=== PATIENT | male | born 1960 | race Hispanic/Latino ===

== ENCOUNTER 2017-07-19 06:57 | Outpatient (CLI) | payer OTHER | END 2017-07-19 06:58 | disposition home or self-care (01) | LOC: BICULT 06:57 | PROVIDERS: ATTEND Urology | DX: N28.1 Cyst of kidney, acquired (principal) | CPT/HCPCS: 76770 ==

== ENCOUNTER 2020-01-23 09:23 | Outpatient (CLI) | payer OTHER ==
--- NOTE | 2020-01-23 12:52 | CT ---
CT ABDOMEN AND PELVIS WITH IV CONTRAST: Oral contrast was administered. INDICATION: Right lower abdominal pain and right flank pain. Patient has colostomy in place and history of colon cancer. Comparison made to CT abdomen and pelvis with contrast performed 03/22/2013. FINDINGS: Lung bases clear. Liver, spleen, and pancreas are unremarkable. Stomach and duodenum unremarkable. Adrenal glands normal. Review of kidneys again shows a low density lesion involving the anterior left renal cortex. This les ion has been described previously and is a mildly complex cystic lesion. It is stable from exam measu ring 1.8-2.0 cm today. Kidneys otherwise unremarkable. Small bowel loops appear normal. There is a colostomy in the left lower quadrant which appears unrema rkable. The visualized colon is filled with stool and gas. Aorta is normal caliber. No evidence of ad enopathy. A few scattered periaortic lymph nodes are stable. Images through the pelvis again show soft tissue prominent in the presacral region. This was present on the prior exam of 2012 and does not appear significantly changed. The urinary bladder is unremarka ble. There are degenerative changes in the spine. Prominent degenerative change at L4-5 and L5-S1 wit h posterior disc bulge and spurring produces central canal stenosis. There is evidence of prior rectal resection. No evidence of rectal stump identified. IMPRESSION: 1. Soft tissue prominence in the presacral region appears stable from prior exam. There is evidence of prior rectosigmoid resection. No definite Nunez pouch identified. 2. Low density lesion in anterior left renal cortex is stable. 3. No acute process or significant interval change apparent. Degenerative spine changes as described . POS: [id number]
== END 2020-01-23 09:24 | disposition home or self-care (01) ==
LOC: SCSCT 09:23
PROVIDERS: ATTEND Specialist
DX: M25.551 Pain in right hip (principal); M47.816 Spondylosis without myelopathy or radiculopathy, lumbar region; M47.817 Spondylosis without myelopathy or radiculopathy, lumbosacral region
CPT/HCPCS: 74177

== ENCOUNTER 2021-03-02 13:44 | Inpatient (IN) | payer BC ==
[~2021-03-02 13:44] MED LIST: Iopamidol 370 76% 100 ML VIAL ONE
[2021-03-02 15:39] LABS: #Eosinphils 0.1 thou/uL (0.0-0.7); #Lymphocytes 1.2 thou/uL (1.20-3.40); #Neutrophils 9.2 thou/uL (1.40-6.50); %Eosinophils 0.6 % (0.0-10.0); %Lymphocytes 10.4 % (21.0-51.0); %Monocytes 8.8 % (0.0-10.0); %Neutrophils 80.3 % (42.0-75.0); Hemoglobin 10.8 g/dL (14.0-18.0); Mean Corpuscular HGB CONC 32.2 g/dL (32.0-36.0); Mean Corpuscular Hemoglobin 25.1 pg (27.0-31.0); Mean Corpuscular Volume 77.9 fL (78.0-98.0); Mean Platelet Volume 6.6 fL (7.4-10.4); Platelet Count 571 thou/uL (130-400); RBC Distribution Width 15.1 % (11.5-14.5); Red Blood Cell (RBC) Count 4.31 mill/uL (4.70-6.10); White Blood Cell (WBC) Count 11.5 thou/uL (4.8-10.8)
[2021-03-02 15:57] LABS: ALT (SGPT) 23 U/L (8-55); AST (SGOT) 22 U/L (5-34); Albumin 3.3 g/dL (3.4-4.8); Alkaline Phosphatase 112 U/L (40-110); Anion Gap 17 mmol/L (10-20); BUN (Urea Nitrogen) 15 mg/dL (8.4-25.7); Bilirubin, Total 0.4 mg/dL (0.2-1.2); Calc. Creatinine Clearance 0 mL/min (70-130); Calcium 8.6 mg/dL (7.8-10.44); Carbon Dioxide 24 mmol/L (23-31); Chloride 90 mmol/L (98-107); Globulin 2.9 g/dL (2.4-3.5); Glucose 270 mg/dL (80-115); Magnesium 1.8 mg/dL (1.6-2.6); Potassium 4.9 mmol/L (3.5-5.1); Protein, Total 6.2 g/dL (5.8-8.1); Sodium 126 mmol/L (136-145)
[2021-03-02 16:20] LABS: CKMB 1.2 ng/mL (0-6.6)
[2021-03-02 17:19] LABS: SARS-CoV-2 NAA Rapid Test Not Detected (NotDetected)
[2021-03-02] MEDS ORDERED: Dextrose 50% Abboject 50 ML SYRINGE SLOW IVP PRN (17:36)
[2021-03-02] MEDS ORDERED: Dextrose 5% in Water 1,000 ML IV PRN (17:36)
[2021-03-02 18:38] LABS: Troponin I 0.065 ng/mL (< 0.028)
[2021-03-02] MEDS ORDERED: HYDROcodone/Acetaminophen 5/325 mg Tablet PO PRN (18:46)
[2021-03-02 20:18] LABS: Iron 13 ug/dL (65-175); Iron Binding Capacity, Total 201 mcg/dL (261-462)
[2021-03-02 21:28] LABS: Troponin I 0.089 ng/mL (< 0.028)
[2021-03-02] MEDS ORDERED: Enoxaparin Sodium 60 MG/0.6 ML SYRINGE SC SCH (23:15)
[2021-03-02] MEDS: guaiFENesin ER 600 MG TAB PO SCH (23:18)
[2021-03-02] MEDS: Gabapentin 300 MG CAP PO SCH (23:18)
[2021-03-02] MEDS: Rosuvastatin 10 MG TAB PO SCH (23:18)
[2021-03-02] MEDS: Sodium Chloride 0.9% 1,000 ML IV SCH (23:19)
[2021-03-02] MEDS: tiZANidine HCl 4 MG TAB PO SCH (23:19)
[2021-03-03 04:59] LABS: #Eosinphils 0.1 thou/uL (0.0-0.7); #Monocytes 0.8 thou/uL (0.11-0.59); #Neutrophils 7.3 thou/uL (1.40-6.50); %Basophils 0.1 % (0.0-1.0); %Eosinophils 0.6 % (0.0-10.0); %Lymphocytes 10.7 % (21.0-51.0); %Monocytes 8.5 % (0.0-10.0); %Neutrophils 80.2 % (42.0-75.0); Hemoglobin 10.8 g/dL (14.0-18.0); Mean Corpuscular Hemoglobin 23.4 pg (27.0-31.0); Mean Platelet Volume 6.5 fL (7.4-10.4); Platelet Count 592 thou/uL (130-400); RBC Distribution Width 15.4 % (11.5-14.5); White Blood Cell (WBC) Count 9.1 thou/uL (4.8-10.8)
[2021-03-03 05:14] LABS: Anion Gap 15 mmol/L (10-20); BUN (Urea Nitrogen) 9 mg/dL (8.4-25.7); Calc. Creatinine Clearance 101 mL/min (70-130); Calcium 9.2 mg/dL (7.8-10.44); Carbon Dioxide 25 mmol/L (23-31); Chloride 93 mmol/L (98-107); Glucose 147 mg/dL (80-115); Potassium 4.3 mmol/L (3.5-5.1); Sodium 129 mmol/L (136-145)
[2021-03-03] MEDS: Aspirin 81 mg Enteric Coated Tablet PO SCH (08:52)
[2021-03-03] MEDS: Gabapentin 300 MG CAP PO SCH ×3 (08:52→20:32)
[2021-03-03] MEDS: guaiFENesin ER 600 MG TAB PO SCH ×2 (08:52→20:32)
[2021-03-03] MEDS: tiZANidine HCl 4 MG TAB PO SCH ×2 (08:52→20:33)
[2021-03-03] MEDS: Alogliptin 25 MG TAB PO SCH (08:53)
[2021-03-03] MEDS: Enoxaparin Sodium 60 MG/0.6 ML SYRINGE SC SCH ×2 (08:53→20:32)
[2021-03-03] MEDS: Lisinopril 5 MG TAB PO SCH (08:53)
[2021-03-03] MEDS: HumaLOG 300 UNITS/3 ML VIAL SC PRN ×2 (11:27→18:16)
[2021-03-03] MEDS: Sodium Chloride 0.9% 1,000 ML IV SCH ×2 (11:28→18:16)
[2021-03-03] MEDS: Lidocaine 5% Patch TD SCH (18:14)
[2021-03-03] MEDS: Rosuvastatin 10 MG TAB PO SCH (20:33)
[2021-03-04] MEDS: Sodium Chloride 0.9% 1,000 ML IV SCH ×2 (04:30→15:03)
[2021-03-04 04:58] LABS: #Eosinphils 0.1 thou/uL (0.0-0.7); #Lymphocytes 0.8 thou/uL (1.20-3.40); #Neutrophils 8.7 thou/uL (1.40-6.50); %Basophils 0.3 % (0.0-1.0); %Eosinophils 0.6 % (0.0-10.0); %Lymphocytes 7.8 % (21.0-51.0); %Monocytes 9.2 % (0.0-10.0); %Neutrophils 82.1 % (42.0-75.0); Hemoglobin 9.7 g/dL (14.0-18.0); Mean Corpuscular HGB CONC 32.1 g/dL (32.0-36.0); Mean Corpuscular Volume 77.9 fL (78.0-98.0); Mean Platelet Volume 6.6 fL (7.4-10.4); Platelet Count 577 thou/uL (130-400); RBC Distribution Width 15.1 % (11.5-14.5); Red Blood Cell (RBC) Count 3.88 mill/uL (4.70-6.10); White Blood Cell (WBC) Count 10.6 thou/uL (4.8-10.8)
[2021-03-04 05:22] LABS: Anion Gap 14 mmol/L (10-20); BUN (Urea Nitrogen) 7 mg/dL (8.4-25.7); Calc. Creatinine Clearance 104 mL/min (70-130); Calcium 8.5 mg/dL (7.8-10.44); Carbon Dioxide 23 mmol/L (23-31); Chloride 93 mmol/L (98-107); Glucose 133 mg/dL (80-115); Potassium 4.2 mmol/L (3.5-5.1); Sodium 126 mmol/L (136-145)
[2021-03-04] MEDS: Gabapentin 300 MG CAP PO SCH ×3 (09:29→21:05)
[2021-03-04] MEDS: tiZANidine HCl 4 MG TAB PO SCH ×2 (09:30→21:05)
[2021-03-04] MEDS: Lisinopril 5 MG TAB PO SCH (09:30)
[2021-03-04] MEDS: Enoxaparin Sodium 60 MG/0.6 ML SYRINGE SC SCH ×2 (09:30→21:06)
[2021-03-04] MEDS: guaiFENesin ER 600 MG TAB PO SCH ×2 (09:31→21:06)
[2021-03-04] MEDS: Aspirin 81 mg Enteric Coated Tablet PO SCH (09:31)
[2021-03-04] MEDS: Alogliptin 25 MG TAB PO SCH (09:40)
[2021-03-04] MEDS: HumaLOG 300 UNITS/3 ML VIAL SC PRN ×3 (11:44→21:06)
[2021-03-04] MEDS: Communication Order-Pharmacy FS SCH ×2 (15:29→17:28)
[2021-03-04] MEDS: Lidocaine 5% Patch TD SCH (18:05)
[2021-03-04] MEDS: Rosuvastatin 10 MG TAB PO SCH (21:05)
[2021-03-05 04:50] LABS: #Eosinphils 0.1 thou/uL (0.0-0.7); #Lymphocytes 1.1 thou/uL (1.20-3.40); #Monocytes 1.2 thou/uL (0.11-0.59); #Neutrophils 10.7 thou/uL (1.40-6.50); %Basophils 0.3 % (0.0-1.0); %Eosinophils 0.5 % (0.0-10.0); %Lymphocytes 8.1 % (21.0-51.0); %Monocytes 9.2 % (0.0-10.0); %Neutrophils 81.9 % (42.0-75.0); Hemoglobin 9.9 g/dL (14.0-18.0); Mean Corpuscular HGB CONC 31.9 g/dL (32.0-36.0); Mean Corpuscular Hemoglobin 24.8 pg (27.0-31.0); Mean Corpuscular Volume 77.6 fL (78.0-98.0); Mean Platelet Volume 6.4 fL (7.4-10.4); Platelet Count 655 thou/uL (130-400); RBC Distribution Width 15.2 % (11.5-14.5); Red Blood Cell (RBC) Count 3.98 mill/uL (4.70-6.10)
[2021-03-05 05:26] LABS: ALT (SGPT) 27 U/L (8-55); AST (SGOT) 32 U/L (5-34); Albumin 2.7 g/dL (3.4-4.8); Alkaline Phosphatase 120 U/L (40-110); Anion Gap 16 mmol/L (10-20); BUN (Urea Nitrogen) 10 mg/dL (8.4-25.7); Bilirubin, Total 0.6 mg/dL (0.2-1.2); Calc. Creatinine Clearance 93 mL/min (70-130); Calcium 8.5 mg/dL (7.8-10.44); Carbon Dioxide 23 mmol/L (23-31); Chloride 91 mmol/L (98-107); Globulin 3.3 g/dL (2.4-3.5); Glucose 135 mg/dL (80-115); Potassium 4.6 mmol/L (3.5-5.1); Sodium 125 mmol/L (136-145)
[2021-03-05] MEDS: Alogliptin 25 MG TAB PO SCH (10:41)
[2021-03-05] MEDS: Aspirin 81 mg Enteric Coated Tablet PO SCH (10:41)
[2021-03-05] MEDS: Gabapentin 300 MG CAP PO SCH ×3 (10:42→20:38)
[2021-03-05] MEDS: Lisinopril 5 MG TAB PO SCH (10:42)
[2021-03-05] MEDS: tiZANidine HCl 4 MG TAB PO SCH ×2 (10:42→20:39)
[2021-03-05] MEDS: guaiFENesin ER 600 MG TAB PO SCH ×2 (10:42→20:38)
[2021-03-05] MEDS: Enoxaparin Sodium 60 MG/0.6 ML SYRINGE SC SCH ×2 (10:42→20:37)
[2021-03-05] MEDS: HumaLOG 300 UNITS/3 ML VIAL SC PRN (18:15)
[2021-03-05] MEDS: Lidocaine 5% Patch TD SCH (18:15)
[2021-03-05] MEDS: Communication Order-Pharmacy FS SCH (18:19)
[2021-03-05] MEDS: Rosuvastatin 10 MG TAB PO SCH (20:38)
[2021-03-06 04:59] LABS: #Eosinphils 0.1 thou/uL (0.0-0.7); #Lymphocytes 0.7 thou/uL (1.20-3.40); #Neutrophils 9.4 thou/uL (1.40-6.50); %Basophils 0.2 % (0.0-1.0); %Eosinophils 0.8 % (0.0-10.0); %Lymphocytes 6.5 % (21.0-51.0); %Monocytes 8.7 % (0.0-10.0); %Neutrophils 83.9 % (42.0-75.0); Hemoglobin 9.8 g/dL (14.0-18.0); Mean Corpuscular Hemoglobin 24.8 pg (27.0-31.0); Mean Corpuscular Volume 77.4 fL (78.0-98.0); Mean Platelet Volume 6.6 fL (7.4-10.4); Platelet Count 641 thou/uL (130-400); RBC Distribution Width 15.4 % (11.5-14.5); Red Blood Cell (RBC) Count 3.97 mill/uL (4.70-6.10); White Blood Cell (WBC) Count 11.2 thou/uL (4.8-10.8)
[2021-03-06 05:19] LABS: Anion Gap 13 mmol/L (10-20); BUN (Urea Nitrogen) 10 mg/dL (8.4-25.7); Calc. Creatinine Clearance 106 mL/min (70-130); Calcium 8.5 mg/dL (7.8-10.44); Carbon Dioxide 23 mmol/L (23-31); Chloride 91 mmol/L (98-107); Glucose 140 mg/dL (80-115); Potassium 4.2 mmol/L (3.5-5.1); Sodium 123 mmol/L (136-145)
[2021-03-06] MEDS: Enoxaparin Sodium 60 MG/0.6 ML SYRINGE SC SCH ×2 (08:48→21:25)
[2021-03-06] MEDS: Ferrous Sulfate 325 MG TAB PO SCH ×2 (08:49→17:40)
[2021-03-06] MEDS: tiZANidine HCl 4 MG TAB PO SCH ×2 (08:49→21:26)
[2021-03-06] MEDS: Alogliptin 25 MG TAB PO SCH (08:49)
[2021-03-06] MEDS: Lisinopril 5 MG TAB PO SCH (08:49)
[2021-03-06] MEDS: guaiFENesin ER 600 MG TAB PO SCH ×2 (08:49→21:26)
[2021-03-06] MEDS: Gabapentin 300 MG CAP PO SCH ×3 (08:49→21:26)
[2021-03-06] MEDS: Aspirin 81 mg Enteric Coated Tablet PO SCH (08:49)
[2021-03-06] MEDS: HumaLOG 300 UNITS/3 ML VIAL SC PRN ×3 (11:29→21:28)
[2021-03-06] MEDS: Communication Order-Pharmacy FS SCH (13:43)
[2021-03-06] MEDS: Lidocaine 5% Patch TD SCH (17:41)
[2021-03-06] MEDS: Rosuvastatin 10 MG TAB PO SCH (21:26)
[2021-03-07] MEDS: Aspirin 81 mg Enteric Coated Tablet PO SCH (09:08)
[2021-03-07] MEDS: guaiFENesin ER 600 MG TAB PO SCH ×2 (09:08→20:34)
[2021-03-07] MEDS: Ferrous Sulfate 325 MG TAB PO SCH ×2 (09:08→15:57)
[2021-03-07] MEDS: Enoxaparin Sodium 60 MG/0.6 ML SYRINGE SC SCH ×2 (09:08→20:33)
[2021-03-07] MEDS: Gabapentin 300 MG CAP PO SCH ×3 (09:08→20:34)
[2021-03-07] MEDS: Alogliptin 25 MG TAB PO SCH (09:08)
[2021-03-07] MEDS: Lisinopril 5 MG TAB PO SCH (09:08)
[2021-03-07 09:19] LABS: Anion Gap 17 mmol/L (10-20); BUN (Urea Nitrogen) 8 mg/dL (8.4-25.7); Calc. Creatinine Clearance 93 mL/min (70-130); Calcium 8.9 mg/dL (7.8-10.44); Carbon Dioxide 22 mmol/L (23-31); Chloride 91 mmol/L (98-107); Glucose 202 mg/dL (80-115); Potassium 4.3 mmol/L (3.5-5.1); Sodium 126 mmol/L (136-145)
[2021-03-07] MEDS: tiZANidine HCl 4 MG TAB PO SCH ×2 (11:47→20:34)
[2021-03-07] MEDS: HumaLOG 300 UNITS/3 ML VIAL SC PRN ×2 (11:48→17:39)
[2021-03-07] MEDS: Communication Order-Pharmacy FS SCH ×2 (14:02→14:18)
[2021-03-07] MEDS: Lidocaine 5% Patch TD SCH (17:39)
[2021-03-07] MEDS: Rosuvastatin 10 MG TAB PO SCH (20:35)
[2021-03-08 05:02] LABS: Hemoglobin 9.9 g/dL (14.0-18.0); Platelet Count 784 thou/uL (130-400)
[2021-03-08 05:26] LABS: Anion Gap 15 mmol/L (10-20); BUN (Urea Nitrogen) 9 mg/dL (8.4-25.7); Calc. Creatinine Clearance 99 mL/min (70-130); Calcium 8.9 mg/dL (7.8-10.44); Carbon Dioxide 24 mmol/L (23-31); Chloride 93 mmol/L (98-107); Glucose 151 mg/dL (80-115); Potassium 4.2 mmol/L (3.5-5.1); Sodium 128 mmol/L (136-145)
[2021-03-08] MEDS: Lisinopril 5 MG TAB PO SCH (08:48)
[2021-03-08] MEDS: Alogliptin 25 MG TAB PO SCH (08:48)
[2021-03-08] MEDS: tiZANidine HCl 4 MG TAB PO SCH ×2 (08:48→22:01)
[2021-03-08] MEDS: Enoxaparin Sodium 60 MG/0.6 ML SYRINGE SC SCH (08:48)
[2021-03-08] MEDS: guaiFENesin ER 600 MG TAB PO SCH (08:48)
[2021-03-08] MEDS: Aspirin 81 mg Enteric Coated Tablet PO SCH (08:48)
[2021-03-08] MEDS: Ferrous Sulfate 325 MG TAB PO SCH ×2 (08:48→16:25)
[2021-03-08] MEDS: Gabapentin 300 MG CAP PO SCH ×3 (08:48→22:01)
[2021-03-08] MEDS ORDERED: Lidocaine 4% PF 5 ML AMP NEB SCH (09:15)
[2021-03-08] MEDS: Sodium Chloride 0.9% 1,000 ML IV SCH (11:32)
[2021-03-08] MEDS: HumaLOG 300 UNITS/3 ML VIAL SC PRN ×2 (11:37→17:45)
[2021-03-08] MEDS: Lidocaine 5% Patch TD SCH (16:25)
[2021-03-08] MEDS: Communication Order-Pharmacy FS SCH (16:52)
[2021-03-08] MEDS: Rosuvastatin 10 MG TAB PO SCH (22:00)
[2021-03-09 05:43] LABS: Anion Gap 15 mmol/L (10-20); BUN (Urea Nitrogen) 9 mg/dL (8.4-25.7); Calc. Creatinine Clearance 97 mL/min (70-130); Calcium 9.1 mg/dL (7.8-10.44); Carbon Dioxide 24 mmol/L (23-31); Chloride 95 mmol/L (98-107); Glucose 165 mg/dL (80-115); Potassium 4.3 mmol/L (3.5-5.1); Sodium 130 mmol/L (136-145)
[2021-03-09] MEDS ORDERED: Fentanyl 100 MCG/2 ML VIAL ONE ×2 (06:26→08:28)
[2021-03-09] MEDS ORDERED: PROPOFOL 200 MG/20 ML VIAL ONE (07:37)
[2021-03-09] MEDS ORDERED: Ondansetron PF 4 MG/2 ML Vial ONE (07:37)
[2021-03-09] MEDS ORDERED: Succinylcholine 200 MG/10 ml SYRINGE FS ONE (07:37)
[2021-03-09] MEDS ORDERED: Lidocaine 1% PF 5 ML VIAL ONE (07:37)
[2021-03-09] MEDS ORDERED: Dexamethasone 20 MG/5 ML VIAL ONE (07:37)
[2021-03-09] MEDS: guaiFENesin ER 600 MG TAB PO SCH ×2 (09:44→10:06)
[2021-03-09] MEDS: Sodium Chloride 0.9% 1,000 ML IV SCH (10:05)
[2021-03-09] MEDS: Aspirin 81 mg Enteric Coated Tablet PO SCH (10:06)
[2021-03-09] MEDS: Alogliptin 25 MG TAB PO SCH (10:06)
[2021-03-09] MEDS: Gabapentin 300 MG CAP PO SCH ×2 (10:06→16:47)
[2021-03-09] MEDS: Ferrous Sulfate 325 MG TAB PO SCH ×2 (10:06→16:47)
[2021-03-09] MEDS: Lisinopril 5 MG TAB PO SCH (10:06)
[2021-03-09] MEDS: tiZANidine HCl 4 MG TAB PO SCH (10:06)
[2021-03-09 16:16] VITALS: BP 121/80; TEMP 98
[2021-03-09] MEDS ORDERED: Apixaban 5 MG TAB PO SCH (21:00)
== END 2021-03-09 18:19 | disposition home or self-care (01) | DRG 180 ==
LOC: ERS 13:44 → SUATTDRO 13:44 → 2NO 17:37
PROVIDERS: ADMIT Family Medicine; ATTEND Internal Medicine
PROC: 0BDD8ZX Extraction of Right Middle Lung Lobe, Via Natural or Artificial Opening Endoscopic, Diagnostic (ICD-10-PCS; principal; 2021-03-09)
PROC: 0BDJ8ZX Extraction of Left Lower Lung Lobe, Via Natural or Artificial Opening Endoscopic, Diagnostic (ICD-10-PCS; 2021-03-09)
DX: C78.01 Secondary malignant neoplasm of right lung (principal); I26.92 Saddle embolus of pulmonary artery without acute cor pulmonale; E22.2 Syndrome of inappropriate secretion of antidiuretic hormone; I82.412 Acute embolism and thrombosis of left femoral vein; I82.432 Acute embolism and thrombosis of left popliteal vein; C78.02 Secondary malignant neoplasm of left lung; Z20.822 Contact with and (suspected) exposure to COVID-19; I27.20 Pulmonary hypertension, unspecified; E78.5 Hyperlipidemia, unspecified; E78.00 Pure hypercholesterolemia, unspecified; I10 Essential (primary) hypertension; C80.1 Malignant (primary) neoplasm, unspecified; M54.31 Sciatica, right side; D72.829 Elevated white blood cell count, unspecified; E11.65 Type 2 diabetes mellitus with hyperglycemia; D50.9 Iron deficiency anemia, unspecified; R77.8 Other specified abnormalities of plasma proteins; I08.1 Rheumatic disorders of both mitral and tricuspid valves; Z86.711 Personal history of pulmonary embolism; Z86.718 Personal history of other venous thrombosis and embolism; Z85.038 Personal history of other malignant neoplasm of large intestine; Z92.3 Personal history of irradiation; Z92.21 Personal history of antineoplastic chemotherapy; Z79.899 Other long term (current) drug therapy; Z79.84 Long term (current) use of oral hypoglycemic drugs; Z79.01 Long term (current) use of anticoagulants; Z83.3 Family history of diabetes mellitus; Z93.3 Colostomy status; Z85.048 Personal history of other malignant neoplasm of rectum, rectosigmoid junction, and anus
CPT/HCPCS: 0240U; 36415; 36416; 71045; 71275; 80048; 80053; 82378; 82553; 82728; 83540; 83550; 83735; 83880; 83930; 83935; 84300; 84484; 85014; 85018; 85025; 85049; 87040; 87086; 88104; 88112; 88305; 88313; 88341; 88342; 93005; 93306; 94760; J1100; J1650; J1815; J2405; J2704; J3010; J7620; Q9967